=== PATIENT | female | born 1960 ===

== ENCOUNTER 2024-09-01 08:26 | Day surgery (SDC) | payer OTHER ==
[2024-09-01] MEDS ORDERED: FLUMAZENIL 0.5 MG/5 ML ML IV STA (14:11)
[2024-09-01] MEDS ORDERED: MIDAZOLAM HCL 2 MG/2 ML VIAL IV ONE (14:15)
[2024-09-01] MEDS ORDERED: ONDANSETRON HCL 2 MG/ML VIAL IV ONE (14:15)
[2024-09-01] MEDS ORDERED: fentaNYL CITRATE 50 MCG/ML AMPUL IV PUSH ONE (14:15)
[2024-09-01] MEDS ORDERED: DIPHENHYDRAMINE HCL 50 MG/ML VIAL 1ML IV ONE (14:15)
== END 2024-09-01 15:40 | disposition home or self-care (01) ==
LOC: AMB-ENDOS 08:26
PROVIDERS: ATTEND Colon & Rectal Surgery
DX: D12.0 Benign neoplasm of cecum (principal); K57.30 Diverticulosis of large intestine without perforation or abscess without bleeding; K63.5 Polyp of colon